=== PATIENT | female | born 1950 | race Caucasian/White ===

== ENCOUNTER 2020-03-07 09:56 | Emergency (ER) | payer MEDICARE, SELFPAY ==
--- NOTE | ~2020-03-07 | XR_ITS ---
EXAMINATION: XR chest 2V DATE: 03/07/2020 10:49 INDICATION: Right chest pain TECHNIQUE: PA and lateral views of the chest are obtained. COMPARISON: None available FINDINGS: The lungs are free of acute opacities. There is no pleural effusion or pneumothorax. The ca rdiomediastinal silhouette is normal. There is mild thoracic spondylosis. Changes of anterior interbo dy fusion are noted in the lower cervical spine. IMPRESSION: 1. No acute cardiopulmonary abnormality. Reviewed, dictated and finalized at location A.
[2020-03-07 10:01] VITALS: BP 134/77; PULSE 78; RESP 18; TEMP 36.6; O2SAT 100
--- NOTE | 2020-03-07 10:39 | ED.BACK ---
HPI - Back Pain/Injury General Chief Complaint: Back Pain/Injury <Moises Rodriguez PA-C - Last Filed: 03/07/20 12:32> Stated Complaint: Back Pain <Moises Rodriguez PA-C - Last Filed: 03/07/20 12:32> Source: patient and family <Moises Rodriguez PA-C - Last Filed: 03/07/20 12:32> Mode of arrival: ambulatory <Moises Rodriguez PA-C - Last Filed: 03/07/20 12:32> Limitations: no limitations <Moises Rodriguez PA-C - Last Filed: 03/07/20 12:32> History of Present Illness HPI Narrative: Patient is a 69-year-old female who presents with right upper thoracic paraspinal tenderness that began evening patient notes that she had been kayaking denied specific injury or trauma notes that the pain began in the evening is a moderate aching pain that intermittently shoots down the right upper extremity. Patient does have history of degenerative disc disease with a cervical spine fusion. Patient denies any neck pain. Patient denies similar occurrence in the past. Patient is attempted anti-inflammatories and pain medications that are [id number] with minimal improvement. On arrival to emergency department per private vehicle patient is resting comfortably in the room in no distress. Pain is reproducible with palpation and certain movements <Moises Rodriguez PA-C - Last Filed: 03/07/20 12:32> Related Data Home Medications: Home Medications Medication Instructions Recorded Confirmed hydroxychloroquine DAILY 03/07/20 pantoprazole 40 PO DAILY 03/07/20 <Moises Rodriguez PA-C - Last Filed: 03/07/20 12:32> Allergies/Adverse Reactions: Allergies Allergy/AdvReac Type Severity Reaction Status Date / Time morphine AdvReac Intermediate NAUSEA AND Verified 03/07/20 10:46 VOMITING <Moises Rodriguez PA-C - Last Filed: 03/07/20 12:32> Review of Systems Review of Systems: All systems reviewed & are unremarkable except as noted in HPI and below <Moises Rodriguez PA-C - Last Filed: 03/07/20 12:32> PMFSH Past Medical History Medical History: Medical History Lupus <Moises Rodriguez PA-C - Last Filed: 03/07/20 12:32> Surgical History Surgical History: Surgical History (Updated 03/07/20 @ 10:41 by Moises Rodriguez PA-C) S/P cervical spinal fusion <Moises Rodriguez PA-C - Last Filed: 03/07/20 12:32> Social History Social History: Social History (Updated 03/07/20 @ 10:41 by Moises Rodriguez PA-C) Smoking status: Never smoker Gender identity (if verbalized by the patient): Female <Moises Rodriguez PA-C - Last Filed: 03/07/20 12:32> Exam Narrative: Exam Narrative: GENERAL: Well-appearing, well-nourished, and in no acute distress. HEAD: Normocephalic, atraumatic. EYES: PERRLA and EOMI. ENT: Nares clear, no rhinorrhea or epistaxis. Mucous membranes moist. NECK: Supple. No adenopathy or masses. CHEST: Clear to auscultation. No respiratory distress. No wheezes rales or rhonchi HEART: Regular rate and rhythm. No murmur heard. Normal peripheral pulses. EXTREMITIES: Normal range of motion. No edema. Tenderness of the right paraspinal thoracic musculature with palpation of the muscles there are no rashes or other deformities noted no midline thoracic or cervical tenderness to palpation SKIN: Warm, dry, no rash. NEURO: No focal deficits. Alert and oriented x3. Neurovascularly intact. Capillary refill less than 2 seconds. Motor and sensory intact in the extremities PSYCH: Normal mood and affect. <Moises Rodriguez PA-C - Last Filed: 03/07/20 12:32> Course Vital Signs Vital signs: Vital Signs Temperature 36.6 C 03/07/20 10:01 Pulse Rate 78 03/07/20 10:01 Respiratory Rate 18 03/07/20 10:01 Blood Pressure 134/77 03/07/20 10:01 Pulse Oximetry 100 03/07/20 10:01 Temperature 36.6 C 03/07/20 10:01 Pulse Rate 78 03/07/20 10:01 Respiratory Rate 18
[2020-03-07] MEDS: diazePAM 5 MG TABLET PO (10:57)
[2020-03-07] MEDS: KETOROLAC 30 MG/ML VIAL (*BKC) IM (10:57)
--- NOTE | 2020-03-07 11:31 | ECG_ITS ---
Measurements Intervals Radcliffe Rate: 67 P: 59 DC: 170 QRS: 0 QRSD: 101 T: 29 QT: 382 QTc: 405 Interpretive Statements SINUS RHYTHM LOW QRS VOLTAGE IN PRECORDIAL LEADS INCOMPLETE RIGHT BUNDLE BRANCH BLOCK BORDERLINE R WAVE PROGRESSION, ANTERIOR LEADS BORDERLINE ST-T WAVE ABNORMALITY- INFERIOR LEADS BORDERLINE ECG Electronically Signed On 03-07-2020 15:15:43 CDT by Melvin Hernandez D.O.
[2020-03-07 12:40] VITALS: BP 128/74; PULSE 76; RESP 18; O2SAT 99
== END 2020-03-07 12:42 | disposition home or self-care (01) ==
PROVIDERS: Emergency Provider Emergency Medicine; PCP Family Medicine Adolescent Medicine
DX: M54.6 Pain in thoracic spine (principal); Z98.1 Arthrodesis status; I45.10 Unspecified right bundle-branch block; R94.31 Abnormal electrocardiogram [ECG] [EKG]
CPT/HCPCS: 71046; 93005; 96372; 99283; A9270; J1885

== ENCOUNTER → 2020-04-11 08:02 | Outpatient (CLI) | payer MEDICARE, SELFPAY ==
--- NOTE | ~2020-04-11 | MR_ITS ---
EXAMINATION: MR cervical spine wo con DATE: 04/11/2020 09:05 INDICATION: Cervical radiculopathy. Right arm weakness. TECHNIQUE: Magnetic resonance imaging (MRI) of the cervical spine was performed without intravenous c ontrast. Sequences included sagittal T2-weighted FSE, sagittal STIR FSE, sagittal T1-weighted FSE, ax ial MERGE, and axial T2-weighted FSE. COMPARISON: Cervical spine MRI 04/01/2014 FINDINGS: There is 2 mm retrolisthesis of C4 on C5. Vertebral body heights are normal. There are hicks ges of anterior fusion procedures at C5-C6 and C6-C7 with interbody devices. There is mildly decrease d disc height at C3-C4, severely decreased disc height at C4-C5, and mildly decreased disc height at C7-T1. The spinal cord signal intensity is normal. The following disc levels are specifically discuss ed: C2-C3: The disc does not extend beyond the endplate margin. There is no uncovertebral joint osteoarth ritis. There is mild bilateral facet joint osteoarthritis. There is no neural foraminal stenosis. The re is no central canal stenosis. C3-C4: The disc is bulging. There is severe bilateral uncovertebral joint osteoarthritis. There is mo derate right and severe left facet joint osteoarthritis. There is mild right and moderate left neural foraminal stenosis. There is mild central canal stenosis with ventral indentation of the spinal cord . C4-C5: The disc is bulging. There is severe bilateral uncovertebral joint osteoarthritis. There is mo derate bilateral facet joint osteoarthritis. There is moderate bilateral neural foraminal stenosis. T here is moderate central canal stenosis with ventral and dorsal indentation of the spinal cord. C5-C6: There is mild bilateral uncovertebral joint hypertrophy. There is no facet joint osteoarthriti s. There is mild left neural foraminal stenosis. There is no central canal stenosis. C6-C7: There is mild bilateral uncovertebral joint hypertrophy. There is no facet joint osteoarthriti s. There is no neural foraminal stenosis. There is no central canal stenosis. C7-T1: The disc does not extend beyond the endplate margin. There is mild left uncovertebral joint os teoarthritis. There is mild bilateral facet joint osteoarthritis. There is mild left neural foraminal stenosis. There is no central canal stenosis. IMPRESSION: 1. Severe cervical spondylosis, stable from 04/01/2014. 2. Anterior fusion procedures at C5-C6 and C6-C7. Reviewed, dictated and finalized at location A.
== END ==
PROVIDERS: Visit Provider Family Medicine Adolescent Medicine
DX: M47.22 Other spondylosis with radiculopathy, cervical region (principal)
CPT/HCPCS: 72141

== ENCOUNTER 2020-04-27 08:56 | Outpatient (CLI) | payer MEDICARE, SELFPAY | END 2020-04-27 08:57 | disposition home or self-care (01) | LOC: ANHAUDASC 08:57 | PROVIDERS: PCP Family Medicine Adolescent Medicine; Visit Provider Family Medicine Adolescent Medicine | DX: H90.3 Sensorineural hearing loss, bilateral (principal) | CPT/HCPCS: 92557; 92567 ==

== ENCOUNTER → 2020-06-22 11:00 | Outpatient (CLI) | payer MEDICARE, SELFPAY ==
--- NOTE | ~2020-06-22 | MM_ITS ---
EXAMINATION: MM screening [facility] BI w eyad HISTORY: Screening mammogram TECHNIQUE: Craniocaudal and mediolateral oblique 3-D tomosynthesis images were obtained and synthetic 2-D images were generated. CAD analysis was submitted and interpreted. COMPARISON: 03/01/2019, bilateral digital screening mammogram examinations BREAST PARENCHYMAL COMPOSITION: There are scattered areas of fibroglandular density. FINDINGS: Stable mild fibroglandular asymmetry. There is no evidence of suspicious mass, calcificatio n, or architectural distortion to suggest malignancy in either breast. There has been no suspicious i nterval change. IMPRESSION: 1. No mammographic evidence of malignancy. 2. Recommend routine screening mammography in one year. BI-RADS Category 2: Benign finding(s). Reviewed, dictated and finalized at location A. E LEADER
== END ==
PROVIDERS: PCP Family Medicine Adolescent Medicine; Visit Provider Family Medicine Adolescent Medicine
DX: Z12.31 Encounter for screening mammogram for malignant neoplasm of breast (principal)
CPT/HCPCS: 77063; 77067

== ENCOUNTER 2021-02-22 01:17 | Day surgery (SDC) | payer MEDICARE, SELFPAY ==
[2021-02-12 09:53] VITALS: BMI 27.6
[2021-02-22 10:35] VITALS: BP 117/56; PULSE 90; RESP 16; TEMP 36.9; O2SAT 100
[2021-02-22] MEDS: LACTATED RINGERS 1,000 ML 30 ML IV CONT (11:00)
--- NOTE | 2021-02-22 11:00 | WPDANESEPPF ---
Anes - Initial Pre Proc Eval Procedure: Operation Date: 02/22/21 12:00 Proposed Procedures p Excision Right Posterior Neck Mass - Axel Chicas MD Date/Time: 02/22/21 11:00 Surgeon: Axel Chicas MD Pre Op Diagnosis: right posterior neck mass Patient Data Age: 70 Gender: F Height: 1.57 m Weight: 68.5 kg Last Vital Signs Temp 36.9 C 02/22/21 10:35 Pulse 90 02/22/21 10:35 Resp 16 02/22/21 10:35 BP 117/56 L 02/22/21 10:35 Pulse Ox 100 02/22/21 10:35 Allergies Allergy/AdvReac Type Severity Reaction Status Date / Time morphine AdvReac Intermediate NAUSEA AND Verified 02/22/21 10:43 VOMITING Home Medications Medication Instructions Recorded Confirmed Type hydroxychloroquine 200 mg PO 3XW 03/07/20 02/22/21 History pantoprazole 20 mg PO DAILY 03/07/20 02/22/21 History cholecalciferol (vitamin D3) 125 mcg PO DAILY 02/12/21 02/22/21 History jqddxwdydbqc-tifl-weavb acid 1 tablet PO DAILY 02/12/21 02/22/21 History [[facility]] Patient hx anesthesia problems: none Family hx anesthesia problems: none PMFSH Past Medical History Medical History GERD (gastroesophageal reflux disease) High cholesterol Lupus Stomach ulcer Surgical History Surgical History S/P cervical spinal fusion S/P hysterectomy S/P tonsillectomy Family History Family History Father Dementia Mother Carcinoma of colon Social History Social History Smoking status: Never smoker Alcohol intake: current Living arrangements: with family Gender identity (if verbalized by the patient): Female Spiritual care concerns: No Anes - Eval Final PreProcedure Day of Procedure 02/22/21 11:00 Patient weight: overweight Heart: regular rate and rhythm Lungs: clear to auscultation and normal air movement Airway: Mallampati scale class II Neurological: alert and oriented Last oral intake: >/= 8 hours ASA classification: III Emergent: no Anesthetic plan: proceed Anesthesia type and monitoring: general GIVS and standard monitoring Informed Consent: The patient's anesthetic plan and its attendant risks and benefits were discussed with the patient/family/POA. Questions were solicited and answers provided to the satisfaction of the patient/family/POA.
--- NOTE | 2021-02-22 12:16 | WPDHPUPDATE1 ---
History and Physical Update Update Date/Time: 02/22/21 12:16 History and Physical has been reviewed, including an updated exam of the patient. There are NO changes in the patient's condition. Risks, benefits, and alternatives have been discussed and questions answered. Patient agrees to proceed with procedure.
--- NOTE | 2021-02-22 12:21 | SUR.PREOP ---
ancef 2gm sent to or ,verbal order from dr ivey.
[2021-02-22] MEDS: BUPIVACAINE/EPINEPHRINE 0.5% 30 ML VIAL 20 ML INFILTRATE (12:22)
[2021-02-22] MEDS: ceFAZolin 2 GM/D5W 50 ML 2 GM/50 ML BAG IVPB (12:22)
[2021-02-22 13:20] VITALS: BP 98/51; PULSE 85; RESP 20; O2SAT 100
--- NOTE | 2021-02-22 13:37 | W.PM.PROC2 ---
Procedure Note - Detailed Date of Procedure 02/22/21 Pre-op Diagnosis right posterior neck subcutaneous mass Post-op Diagnosis same (Suspected lipoma (3.3 x 3.0 x 1.8 cm after excision)) Procedure Performed Excision of subcutaneous mass right posterior neck 4 x 3 by 1.87 cm Surgeon Axel Chicas MD Employee Adviser LASHONDA Mays, OR 1st assist Anesthesia general (GIVS plus local anesthetic) Indications See H&P Patient has a movable subcutaneous mass is oriented vertically approximately 2-3 cm off the midline posterior neck overlying the muscles. This been gradually getting larger causing discomfort. , Therefore, I discussed the risks, benefits, and possible complications of an excision with IV sedation local anesthetic. Findings An adherent suspected lipoma within the subcutaneous tissues densely adhered to the underlying muscle fascia. Description of Procedure The patient was placed in the left lateral decubitus position. General IV sedation was provided Dave anesthesia. After a surgical time out confirming patient and procedure the patient was prepped and draped in the usual sterile fashion. Local anesthetic was administered subcutaneously and in the skin along the line of proposed incision which was vertical approximately 2-3 cm off the midline posteriorly on the right posterior neck. The lesion measured 4 x 3 cm prior to excision and the incision over the lesion was approximately 4.5 cm long. A direct incision was made over the the palpable subcutaneous mass. I dissected down to the deep subcutaneous tissues and then apply pressure to the medial and lateral sides of it to see if this would push the lipoma right up and out of the subcutaneous tissues. It did not. Therefore, we went ahead with further dissection elevating the ends of the incisions on both ends with retractors and carefully dissecting with a 15 blade knife and then with Bovie cautery to free the adherent lipoma from the underlying musculature of the neck probably excising a little bit of the underlying fascia and excising it from the surrounding subcutaneous tissues. This completely excised the lesion. There was a very thin capsule. On the lateral upper aspect there was a small amount of fatty tissue suspicious for a tongue of the lipoma that was also excised after we carefully inspected the bed where the main body of the lipoma, which measured a vertically 3.8 cm, horizontally 3.0 cm, and with a depth of 1.8 cm after excision. Bleeding was controlled with electrocautery. The wound was closed in two layers. An un-dyed 2-0 vicryl deep dermal and then a 4-0 undyed Monocryl running subcuticular closure was completed. Surgical glue applied as dressing. Patient tolerated this well. Implants None Estimated Blood Loss 5 Drains No Packing No Pathology yes (subcutaneous mass with one large mass and several separate small pieces) Complications No immediate complications Condition stable Disposition same day
[2021-02-22 13:50] VITALS: BP 98/49; PULSE 68; RESP 16; O2SAT 100
[2021-02-22 14:16] VITALS: BP 113/85; PULSE 76; RESP 16
== END 2021-02-22 14:25 | disposition home or self-care (01) ==
PROVIDERS: PCP Family Medicine Adolescent Medicine; Visit Provider Surgery
PROC: (CPT 21552; principal; 2021-02-22 12:00)
DX: D17.0 Benign lipomatous neoplasm of skin and subcutaneous tissue of head, face and neck (principal); K21.9 Gastro-esophageal reflux disease without esophagitis; E78.00 Pure hypercholesterolemia, unspecified; M32.9 Systemic lupus erythematosus, unspecified; Z98.1 Arthrodesis status
CPT/HCPCS: 21552; 88304; J0690; J1100; J2250; J2405; J2704; J3010; J7120

== ENCOUNTER → 2021-03-12 12:11 | Outpatient (CLI) | payer MEDICARE, SELFPAY ==
--- NOTE | ~2021-03-12 | DEXA_ITS ---
Bone Density Report Name: Keren Chung Age: 70 Sex: Female Ethnicity: White Date of : 1950 Indication: postmenopausal; screening for osteoporosis; hysterectomy; Referring Provider: BOB SUAZO Study: Bone densitometry was performed. Exam Date: March 12, 2021 Accession number: [id number] Bone Density: Region BMD T-score Z-score Classification AP Spine (L1-L4) 1.110 0.6 2.6 Normal Femoral Neck (Left) 0.764 -0.8 0.9 Normal Total Hip (Left) 0.925 -0.1 1.3 Normal Femoral Neck (Right) 0.817 -0.3 1.4 Normal Total Hip (Right) 1.032 0.7 2.2 Normal Total Hip Mean 0.979 0.3 1.8 Normal World Health Organization criteria for BMD impression classify patients as: Normal (T-score at or above -1.0), Osteopenia (T-score between -1.0 and -2.5), or Osteoporosis (T-score at or below -2.5). 10-year Fracture Risk: FRAX not reported because: All T-scores for Spine Total, Hip Total, Femoral Neck at or above -1.0 Previous Exams: Region Exam Age BMD T-score BMD Change BMD Change Date g/cm2 vs Baseline vs Previous AP Spine(L1-L4) 03/12/2021 70 1.110 0.6 -0.005 -0.030* 02/06/2018 67 1.141 0.9 0.026* 0.033* 01/05/2011 60 1.108 0.6 -0.007 -0.007 12/22/2008 58 1.115 0.6 Total Hip(Left) 03/12/2021 70 0.925 -0.1 -0.079* -0.032* 02/06/2018 67 0.957 0.1 -0.047* -0.053* 01/05/2011 60 1.010 0.6 0.006 0.006 12/22/2008 58 1.004 0.5 Total Hip(Right) 03/12/2021 70 1.032 0.7 -0.048* -0.006 02/06/2018 67 1.038 0.8 -0.042* -0.028* 01/05/2011 60 1.066 1.0 -0.014 -0.014 12/22/2008 58 1.080 1.1 *Denotes significance at 95% confidence level, LSC for AP Spine = 0.022 g/cm2, LSC for Total Hip = 0.027 g/cm2 Clinical Information Provided by Patient: Has used the following medications: Calcium Has the following medical conditions: Hysterectomy Patient maximum height was 62 Menopause Age: 46 No regular weight bearing exercise Drinks caffeinated beverages Onset of menses at age 17 Number of children 2 Impression: The patient has normal bone mass. The BMD for the AP Spine(L1-L4) decreased, changing by -0.030 since the last DXA exam. The BMD for the Total Hip(Left) decreased, changing by -0.032 since the last DXA exam. Discussion: BONE DENSITY
== END ==
PROVIDERS: PCP Family Medicine Adolescent Medicine; Visit Provider Family Medicine Adolescent Medicine
DX: M81.0 Age-related osteoporosis without current pathological fracture (principal)
CPT/HCPCS: 77080

== ENCOUNTER → 2021-05-04 10:27 | Outpatient (CLI) | payer MEDICARE, SELFPAY ==
--- NOTE | ~2021-05-04 | MR_ITS ---
EXAMINATION: MR cervical spine wo con EXAM DATE: 05/04/2021 11:23 INDICATION: Cervical spinal stenosis with right hand weakness and numbness. TECHNIQUE: Multi-sequential, multiplanar MR images of the cervical spine were obtained without contra st. Axial T2, axial T2 MERGE sequence. Sagittal T1, T2, T2 fat saturation images also obtained. Th ere is no prior study for comparison. FINDINGS: Interbody fusion at C5-6. There is moderate to severe disc disease C4-5, moderate at C3-4 a nd C6-7. The spinal cord signal intensity and intrinsic morphology is normal. Cervicomedullary juncti on is normal in appearance. The vertebral bodies are aligned in the AP dimension. There are no susp icious marrow signal abnormalities. Paraspinal soft tissue is unremarkable. Level by level evaluation: C2-C3: Disc does not extend beyond the endplate margin. Uncovertebral joint arthropathy: Mild bilateral. Facet joint arthropathy: Mild bilateral. Neural foraminal stenosis: No stenosis. Central canal stenosis: No stenosis. C3-C4: There is a mild diffuse disc bulge. Uncovertebral joint arthropathy: Moderate left, mild to moderate right. Facet joint arthropathy: Mild to moderate bilateral. Neural foraminal stenosis: Moderate to severe left, mild to moderate right. Central canal stenosis: Mild. C4-C5: There is a mild diffuse disc bulge. Uncovertebral joint arthropathy: Severe right, moderate to severe left. Facet joint arthropathy: Moderate bilateral. Neural foraminal stenosis: Severe right, moderate to severe left. Central canal stenosis: Mild. C5-C6: Interbody fusion. Uncovertebral joint arthropathy: Fused. Facet joint arthropathy: Mild. Neural foraminal stenosis: Mild left. Central canal stenosis: No stenosis. C6-C7: Mild to moderate bilateral Uncovertebral joint arthropathy: None. Facet joint arthropathy: None. Neural foraminal stenosis: No stenosis. Central canal stenosis: No stenosis. C7-T1: There is a minimal diffuse disc bulge. Uncovertebral joint arthropathy: Mild to moderate left, mild right. Facet joint arthropathy: Mild bilateral. Neural foraminal stenosis: Mild bilateral. Central canal stenosis: No stenosis. IMPRESSION: 1. 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 2. Interbody fusion C5-6. Reviewed, dictated and finalized at location A. IMPRESSION: 1. Advanced C3-4 and 4-5 arthropathy causing significant neural foraminal sten osis. 2. Interbody fusion C5-6.
== END ==
PROVIDERS: PCP Family Medicine Adolescent Medicine; Visit Provider Family Medicine Adolescent Medicine
DX: M48.02 Spinal stenosis, cervical region (principal); R20.2 Paresthesia of skin; Z98.1 Arthrodesis status
CPT/HCPCS: 72141

== ENCOUNTER 2021-05-10 08:56 | Outpatient (CLI) | payer MEDICARE, SELFPAY | END 2021-05-10 08:57 | disposition home or self-care (01) | LOC: ANHAUDASC 08:58 | PROVIDERS: PCP Family Medicine Adolescent Medicine; Visit Provider Family Medicine Adolescent Medicine | DX: H90.3 Sensorineural hearing loss, bilateral (principal) | CPT/HCPCS: 92557; 92567 ==

== ENCOUNTER → 2021-10-05 13:18 | Outpatient (CLI) | payer MEDICARE, SELFPAY ==
--- NOTE | ~2021-10-05 | MM_ITS ---
EXAMINATION: MM screening [facility] BI w eyad HISTORY: Screening TECHNIQUE: Craniocaudal and mediolateral oblique 3-D tomosynthesis images were obtained and synthetic 2-D images were generated. CAD analysis was submitted and interpreted. COMPARISON: Comparison to multiple prior studies sequentially, with oldest reviewed study dated 12/2017. BREAST PARENCHYMAL COMPOSITION: There are scattered areas of fibroglandular density. FINDINGS: There is no evidence of suspicious mass, calcification, or architectural distortion to sugg est malignancy in either breast. There has been no suspicious interval change. IMPRESSION: 1. No mammographic evidence of malignancy. 2. Recommend routine screening mammography in one year. BI-RADS Category 1: Negative Reviewed, dictated and finalized at location A.
== END ==
PROVIDERS: PCP Family Medicine Adolescent Medicine; Visit Provider Obstetrics & Gynecology
DX: Z12.31 Encounter for screening mammogram for malignant neoplasm of breast (principal)
CPT/HCPCS: 77063; 77067

== ENCOUNTER 2023-02-13 10:40 | Outpatient (CLI) | payer MEDICARE, SELFPAY ==
--- NOTE | ~2023-02-13 | MM_ITS ---
EXAMINATION: MM screening [facility] BI w eyad HISTORY: Screening TECHNIQUE: Craniocaudal and mediolateral oblique 3-D tomosynthesis images were obtained and synthetic 2-D images were generated. CAD analysis was submitted and interpreted. COMPARISON: No prior mammogram is available for comparison at this institution. BREAST PARENCHYMAL COMPOSITION: There are scattered areas of fibroglandular density. FINDINGS: There is no evidence of suspicious mass, calcification, or architectural distortion to sugg est malignancy in either breast. There has been no suspicious interval change. IMPRESSION: 1. No mammographic evidence of malignancy. 2. Recommend routine screening mammography in one year. BI-RADS Category 1: Negative Reviewed, dictated and finalized at location A.
== END 2023-02-13 10:41 ==
PROVIDERS: PCP Obstetrics & Gynecology; Visit Provider Family Medicine Adolescent Medicine
DX: Z12.31 Encounter for screening mammogram for malignant neoplasm of breast (principal)
CPT/HCPCS: 77063; 77067

== ENCOUNTER 2023-10-12 10:57 | Outpatient (CLI) | payer MEDICARE, SELFPAY ==
--- NOTE | ~2023-10-12 | DEXA_ITS ---
Bone Density Report Name: WILLIAM TRIPLETT Age: 73 Sex: Female Ethnicity: White Date of : 1950 Indication: postmenopausal; screening for osteoporosis; hysterectomy; rheumatoid arthritis; Referring Provider: JAN SMITH Study: Bone densitometry was performed. Exam Date: October 12, 2023 Accession number: [id number] Bone Density: Region BMD T-score Z-score Classification AP Spine (L1, L2) 0.958 -0.2 1.8 Normal Femoral Neck (Left) 0.733 -1.0 0.8 Normal Total Hip (Left) 0.907 -0.3 1.3 Normal Femoral Neck (Right) 0.799 -0.4 1.4 Normal Total Hip (Right) 0.994 0.4 2.0 Normal Total Hip Mean 0.951 0.1 1.7 Normal World Health Organization criteria for BMD impression classify patients as: Normal (T-score at or above -1.0), Osteopenia (T-score between -1.0 and -2.5), or Osteoporosis (T-score at or below -2.5). 10-year Fracture Risk: FRAX not reported because: All T-scores for Spine Total, Hip Total, Femoral Neck at or above -1.0 Previous Exams: Region Exam Age BMD T-score BMD Change BMD Change Date g/cm2 vs Baseline vs Previous AP Spine(L1, L2) 10/12/2023 73 0.958 -0.2 -0.085* -0.014 03/12/2021 70 0.972 -0.1 -0.071* -0.020 02/06/2018 67 0.992 0.1 -0.050* -0.057* 01/05/2011 60 1.049 0.6 0.007 0.007 12/22/2008 58 1.043 0.6 Total Hip(Left) 10/12/2023 73 0.907 -0.3 -0.097* -0.018 03/12/2021 70 0.925 -0.1 -0.079* -0.032* 02/06/2018 67 0.957 0.1 -0.047* -0.053* 01/05/2011 60 1.010 0.6 0.006 0.006 12/22/2008 58 1.004 0.5 Total Hip(Right) 10/12/2023 73 0.994 0.4 -0.086* -0.038* 03/12/2021 70 1.032 0.7 -0.048* -0.006 02/06/2018 67 1.038 0.8 -0.042* -0.028* 01/05/2011 60 1.066 1.0 -0.014 -0.014 12/22/2008 58 1.080 1.1 *Denotes significance at 95% confidence level, LSC for AP Spine = 0.022 g/cm2, LSC for Total Hip = 0.027 g/cm2 Clinical Information Provided by Patient: Has rheumatoid arthritis Has used the following medications: Vitamin D, MTV Has the following medical conditions: Hysterectomy Patient maximum height was 62 Menopause Age: 46 No regular weight bearing exercise Drinks caffeinated beverages Onset of menses at age 17 Number of children 2 Impres
== END 2023-10-12 10:58 ==
PROVIDERS: PCP Obstetrics & Gynecology; Visit Provider Nurse Practitioner Family
DX: M81.0 Age-related osteoporosis without current pathological fracture (principal); Z13.820 Encounter for screening for osteoporosis
CPT/HCPCS: 77080

== ENCOUNTER 2024-01-05 09:58 | Outpatient (CLI) | payer MEDICARE, SELFPAY ==
--- NOTE | ~2024-01-05 | XR_ITS ---
3 VIEWS LUMBAR SPINE Ordering provider: New Murrell MD History: . low back pain . Comparison: None. FINDINGS: VERTEBRAL BODIES:Minimal anterolisthesis at the level of L5-S1. No visible fracture or subluxation. Degenerative changes of the spine. DISK SPACES: Narrowing of all the disc spaces at all the lumbar area. Multilevel facet joint disease. SOFT TISSUES: Normal. IMPRESSION: No acute osseous abnormality lumbar spine. Multilevel degenerative disc disease. Reviewed, dictated and finalized at location A.
--- NOTE | ~2024-01-05 | XR_ITS ---
EXAMINATION: XR cervical spine min 6V DATE: 01/05/2024 10:33 INDICATION: Neck pain. TECHNIQUE: 7 views of cervical spine including flexion and extension views were obtained. COMPARISON: Cervical spine MRI 04/11/2020 FINDINGS: Bone alignment is normal. There are changes of anterior fusion procedure from C4 to C7 with interbody devices. There is an anterior plate with screws at C4-C5. Vertebral body heights are osvaldo l. There is moderately decreased disc height at C3-C4 and mildly decreased disc height at C7-T1. Ther e is no abnormal motion on flexion or extension. There is multilevel uncovertebral joint hypertrophy, severe on the left at C3-C4 and on the right at C4-C5. There is multilevel mild facet joint osteoart hritis. There is mild right neural foraminal stenosis at C4-C5. There is moderate left neural foramin al stenosis at C3-C4. There is mild central canal stenosis at C3-C4. No prevertebral soft tissue swel ling. IMPRESSION: 1. Moderate cervical spondylosis. 2. Anterior fusion procedure from C4 to C7. Reviewed, dictated and finalized at location A.
== END 2024-01-05 09:59 ==
PROVIDERS: Visit Provider Family Medicine Adolescent Medicine
DX: M47.892 Other spondylosis, cervical region (principal); Z98.1 Arthrodesis status; M51.36 Other intervertebral disc degeneration, lumbar region
CPT/HCPCS: 72052; 72114

== ENCOUNTER 2025-01-21 00:57 | Day surgery (SDC) | payer MEDICARE, SELFPAY ==
[2025-01-15 16:00] VITALS: BMI 29.0
--- OUTSIDE RECORDS SUMMARY | 2025-01-21 00:59 | XMS_ITS | Clinical Summary ---
Author Organization [facility] Address [address] [place] [address] Care Team Providers Care Revenue Research Analyst Name Role Phone New Murrell MD Primary Care Prov ider Allergies Active Allergy Reactions Criticality Noted Date Comments Codeine Nausea & Vomiting Low 06/16/2020 Morphine Nausea & Vomiting Medium 05/20/2014 Medications multivitamin capsuleIndicat ions:Vitamin Deficiency Take 2 capsules by mouth every morning Gummies Active pantoprazole DR (PROTONIX) 40 mg EC tablet Take 1 tablet (40 mg total) by mouth daily Active diclofenac DR (VOLTAREN) 50 mg EC tablet TAKE 1 TABLET BY MOUTH EVERY DAY 30 tablet [address] (VOLTAREN) 50 mg EC tablet TAKE 1 TABLET BY MOUTH EVERY DAY 30 tablet 5 025 Discontinued Active Problems Problem Noted Date Diagnosed Date Cervical disc disorder with myelopathy of mid-cervical region 07/12/2021 Overview (07/12/2021): Added automatically from request for surgery [id number] Pain in joint involving ankle and foot 9 Chronic GERD 06/08/2018 Pill dysphagia 06/08/2018 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 I recommend that she decrease her hydroxychloroquine to 3 x weekly and if no interval symptomatology, I will discontinue it in 6 months. I am going to order repeat liver function tests for 1 month from now. She will follow up with me in 6 months. Assessment & Plan (05/17/2019 4:50 PM RAMP FLIGHT ATTENDANT): 68-year-old white female with longstanding positive AMADOU, intermittently positive SSB with symptoms of sicca symptoms, mild oral and nasal ulcerations, and arthralgias with exam predominantly consistent with osteoarthritis at this time. She has been on hydroxychloroquine for over 10 years and has not noted any significant escalation of symptoms on a reduced dose. I would like to reassess for the presence of erosive or inflammatory arthritis with hand radiographs. I would like to assess additional serology is a complements, lupus anticoagulant, bwam-ghswov-tbmxkqtu DNA antibodies in urinalysis today. If all is stable I would consider decreasing her to a maintenance dose of 200 mg 3 x weekly given her age and absence of progression. She has significant positive anti mitochondrial antibody but minimal transaminitis so will continue to monitor this at this time but I reassured the patient that the hydroxychloroquine is not the cause of her mild transaminitis. Immunizations Immunization Administration Dates Next Due Influenza, Quadrivalent, Hig h Dose, Preservative Free, Intrr 04/10/2020 Influenza, Trivalent, High D ose, Split, Preservative Free, Intramuscular 05/04/2018 Influenza, Trivalent, Split, Preservative Free, Intradermal 05/05/2017,04/07/2015 Influenza, Unspecified 04/10/2020,05/04/2018 Surgical History Surgery Date Site/Laterality Comments TONSILLECTOMY SPINAL FUSION HYSTERECTOMY 07/03/1997 - 07/02/1998 COLONOSCOPY 2014 Medical History Medical History Date Comments High cholesterol Stomach ulcer Chest pain Gastric reflux Disc disorder of lumbar region Lumbar stenosis Osteoarthritis Lupus PONV (postoperative nausea and vomiting) nausea and vomitting after spinal surgery in 2007, stayed overnight for PONV, unsure if related to anesthesia or pain meds, no problems since Lyme disease 10/2022 HL (hearing loss) 2021 GERD (gastroesophageal reflux disease) 2016 Tinnitus 2020 Connective tissue disease, undifferentiated 05/17/2019 Family History Medical History Relation Name Comments Asthma Brother Everardo Sheridan Jr. Arthritis Father Everardo Sheridan Hearing loss Father Everardo Sheridan Early Maternal Grandfather Cancer Maternal Grandmother Abigail Hilliard Cancer Mother Amanda Sheridan Hearing loss Mother Amanda Sheridan Osteoporosis Mother Amanda Sheridan Early Paternal Grandfather Early Paternal Grandmother Anesthesia problems Neg Hx Relation Name Status Comments Brother Everardo Sheridan Jr. Father Everardo Sheridan Maternal Grandfather Maternal Grandmother Abigail Hilliard Mother Amanda Sheridan Paternal Grandfather Paternal Grandmother Social History Tobacco Use Types Packs/Day Years Used Date Smoking Tobacco: Former Cigarettes 0.2 6 1 1977 Smokeless Tobacco: Never Tobacco Cessation:Counseling Given: Not Answered Alcohol Use Standard Drinks/Week Comments Not Currently 0 (1 standard drink = 0.6 oz pur e alcohol) AUDIT-C Answer Date Recorded Q1: How often do you have a drink containing alcohol? Never 06/13/2024 Q2: How many drinks containi ng alcohol do you have on a typical day when you are drinking? Patient does not drink Q3: How often do you have si x or more drinks on one occasion? Never 06/13/2024 Comments No Sex and Gender Information Value Date Recorded Sex Assigned at Not on file Legal Sex Female 2:04 PM RAMP FLIGHT ATTENDANT Gender Identity Female 10/28/2019 3:27 PM CDT Sexual Orientation Straight 10/28/2019 3: 27 PM CDT Obstetrics History Last Filed Vital Signs Vital Sign Reading Time Taken Comments Blood Pressure 119/70 06/13/2024 1:10 PM RAMP FLIGHT ATTENDANT Pulse 79 06/13/2024 1:10 PM RAMP FLIGHT ATTENDANT Temperature 36.6 C (97.9 F) 06/13/2024 1:10 PM RAMP FLIGHT ATTENDANT Respiratory Rate 18 06/13/2024 1:10 PM RAMP FLIGHT ATTENDANT Oxygen Saturation 100% 06/13/2024 1:10 PM RAMP FLIGHT ATTENDANT Inhaled Oxygen Concentration - - Weight 71.6 kg (157 lb 12.8 oz) 06/13/2024 1:10 PM RAMP FLIGHT ATTENDANT Height 157.5 cm (5' 2) 12/20/2023 8:54 AM CDT Body Mass Index 28.86 12/20/2023 8:54 AM CDT Plan of Treatment Health Maintenance Due Date Last Done Comments Breast Cancer Screening-Mammogram 1950 Colon Cancer Screening-Colonoscopy 1950 Depression Screening 1950 Hepatitis C Screening 1950 Osteoporosis Screening-Bone Density Scan 1950 DTaP/Tdap/Td Vaccine (1 - Tdap) 10/02/1963 Hepatitis B Screening 1970 Pneumococcal vaccine 65+ (1 of 1 - PCV) 2002 Zoster Vaccine (1 of 2) 2002 Well Visit 65+ 2017 Fall Risk Assessment 08/13/2022 08/13/2021 Covid-19 Vaccine (4 - 2023-2 5 season) 2024 06/16/2021, 09/04/2020, 08/07/2020 Influenza Vaccine (Season Ended) 2025 04/10/2020, 04/10/2020, 05/04/2018, Additional history exists Medical Devices Implanted Type Area Lapidarist Device Identifier Shelf Expiration Date Model / Serial / Lot [place] Spine [id number] Mm X W17 Mm X H6 Mm Cervical Anterior 10 D Cage Spinal Tritanium Sterile Latex Free - [id number] Implanted:Qty : 1 on 08/13/2021 by Kelvin Gant MD at [facility] N/A: Spine Cervical [employer] Spine [id number] 10/08/2022 [id number] / / [id number] Clarkston Spine [id number] Plate 20mm Bone Coffee Spine Cervical 1 Level Nonsterile Latex Free - [id number] Implanted:Qty : 1 on 08/13/2021 by Kelvin Gant MD at [facility] N/A: Spine Cervical Clark[employer] Spine [id number] / / [id number] Spine [id number] Screw 16mm 4mm Bone Coffee Spine Cervical Self Start Variable Angle Nonsterile - [id number] Implanted:Qty : 4 on 08/13/2021 by Kelvin Gant MD at [facility] N/A: Spine Cervical Clark[employer] Spine [id number] / / [id number] 700-010 Putty 1cc I-Factor Bone - [id number] Implanted:Qty : 1 on 08/13/2021 by Kelvin Gant MD at [facility] N/A: Spine Cervical [employer] [id number] 03/02/2024 700-010 / / [id number] Insurance UHC MEDICARE ADVANTAGE [facility] Address: [address] [address] [place] [id number] [place]CR HMO REF [facility]IC[facility] Address: [address] [address] [place] [address] UHC MEDICARE ADVANTAGE Advance Directives For more information, please contact: [phone] * Full Code (Latest Code Status on File) Date Activated Date Inactivated Comments 08/13/2021 4:22 PM 08/14/2021 6:55 PM Care Teams Revenue Research Analyst Relationship Specialty Start Date End Date New Murrell MD PCP - General Family Medicine 02/08/19
--- OUTSIDE RECORDS SUMMARY | 2025-01-21 00:59 | XMS_ITS | Clinical Summary ---
Author Organization [facility] Address [address] [place] [address] Care Team Providers Care Mission Systems Engineer Name Role Phone New Murrell MD Primary Care Provider + Source Comments [facility],non-owned Affiliates and Associated Physician Practices is amultiple site organization consisting of ambulatory clinics and hospital sitesin [place], [place], [place] and [place]. This disclosure is being madepursuant to the Care Everywhere program and may not contain all information available regarding this patient. Last updated 18.[facility] [employer] Allergies Active Allergy Reactions Criticality Noted Date Comments Morphine Nausea and/or Vomiting Medium 05/20/2014 Medications * Be aware that medications may not be up to date on this document. Alwaysverify current medications with the patient. multivitamin daily (THERAGRAN) tablet Take 1 Tab by mouth daily with food. Active acetaminophen (TYLENOL) 500 MG tablet Take 500 mg by mouth every 4 hours as needed for Fever or Pain Maximum allowable Acetaminophen amount = 4 Grams (4000 mg) / 24 hours. Active hydroxychloroqu ine (PLAQUENIL) 200 MG tabletIndicatio ns:Connective tissue disease (HCC),Antimitoc hondrial antibody positive Take 1 tablet by mouth 2 times daily 180 tablet 3 9 Active Additional Information Patient taking differently:200 mg Oral,(No frequency reported), Takes 200mg M,W,F, Reported on 03/02/2020 ibuprofen (MOTRIN) 800 MG tablet TAKE 1 TAB BY MOUTH EVERY 8 HOURS NEEDED 0 Active pantoprazole EC (PROTONIX) 20 MG tabletIndicatio ns:Gastroesopha geal reflux disease, unspecified whether esophagitis present Take 1 (one) tablet by mouth once daily 180 tablet 1 2 Active Active Problems Problem Noted Date Diagnosed Date Pill dysphagia 06/08/2018 Chronic GERD 06/08/2018 Connective tissue disease 11/05/2017 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 (FLUZONE HIGH-DOSE QUADRIVALENT; 65Y+), 0.7 ML (HD-IIV4) 05/04/2018 Influenza Intradermal 05/05/2017,04/07/2015 Family History Medical History Relation Name Comments Arthritis - Rheumatoid Father Thyroid Disease Mother Relation Name Status Comments Father Mother Social History Tobacco Use Types Packs/Day Years Used Date Smoking Tobacco: Never Smokeless Tobacco: Never Alcohol Use Standard Drinks/Week Comments No 0 (1 standard drink = 0.6 oz pur e alcohol) rare Comments No Sex and Gender Information Value Date Recorded Sex Assigned at Not on file Legal Sex Female 6:37 AM MANAGEMENT CONSULTING Gender Identity Not on file Sexual Orientation Not on file Occupation Industry Job Start Date Job End Date RETIRED Not on file Not on file Not on file Last Filed Vital Signs Vital Sign Reading Time Taken Comments Blood Pressure 118/72 03/15/2021 9:51 AM CDT Pulse 67 03/15/2021 9:51 AM CDT Temperature 36.7 C (98 F) 03/02/2020 10:35 AM CDT Respiratory Rate 18 09/02/2019 10:35 AM MANAGEMENT CONSULTING Oxygen Saturation 100% 03/15/2021 9:51 AM CDT Inhaled Oxygen Concentration - - Weight 70.4 kg (155 lb 3.2 oz) 03/15/2021 9:51 A M CDT Height 157.5 cm (5' 2) 03/15/2021 9:51 AM CDT Body Mass Index 28.39 03/15/2021 9:51 AM CDT Plan of Treatment Health Maintenance Due Date Last Done Comments BONE DENSITY TESTING 1950 COLOGUARD (AGES 45-75) - COLON CA SCREENING 1950 COLON MONITORING 1950 COLONOSCOPY - COLON CA SCREENING 1952 CT COLONOGRAPHY - COLON CA SCREENING 1950 Colorectal Cancer Screening 1950 FIT - COLON CA SCREENING 1952 FLEX SIG - COLON CA SCREENING 1950 LIPID TESTING 1950 MAMMOGRAM 1950 DTAP/TDAP/TD VACCINES (1 - Tdap) 10/02/1971 PNEUMOCOCCAL VACCINE 50+ (1 of 1 - PCV) 2002 ZOSTER VACCINE (1 of 2) 2002 SCREENING FOR DIABETES 03/06/2022 9, 11/01/2017, 04/20/2017, Additional history exists COVID-19 VACCINE ( - season) 2024 DEPRESSION SCREENING 07/03/2024 MEDICARE AWV CALENDAR YEAR 2024 INFLUENZA VACCINE (#1) 2025 , 04/10/2020, 05/04/2018, Additional history exists Respiratory Syncytial Virus (RSV) Vaccine Pt: or over 60 yrs (1 - 1-dose 75+ series) 10/02/2027 HEPATITIS C SCREENING Completed 08/23/2011 HEPATITIS B VACCINE Aged Out No longe r eligible based on patient's age to complete this topic HIB VACCINE Aged Out No longer eligi ble based on patient's age to complete this topic HPV VACCINE Aged Out No longer eligi ble based on patient's age to complete this topic MENINGOCOCCAL (Group B) VACCINE SHARED DECISION-MAKING Aged Out No longer eligible based on patient's age to complete this topic MENINGOCOCCAL GROUPS A/C/Y/W VACCINE Aged Out No longer eligible based on patient's age to complete this topic Goals Goal Patient Goal Type Associated Problems Recent Progress Patient-Stated? Author Medication Management General On track( 021 9:53 AM CDT) Linette Mann, RN Note: Expected end date: ongoing Interventions: Take all medications as prescribed Let your doctor know right away about any changes in your medications Make sure to request a refill of your medication at least one week prior to your last dose Procedures Procedure Name Priority Date/Time Associated Diagnosis Comments COMPREHENSIVE METABOLIC PANEL Routine 03/06/2019 9:12 AM CDT Connective tissue disease Elevated LFTs Other specified abnormal findings of blood chemistry Connective tissue disease, undifferentiated Encounter for long-term (current) use of high-risk medication Encounter for therapeutic drug monitoring HEPATITIS C ANTIBODY Routine 08/23/2011 3:40 PM MANAGEMENT CONSULTING from Last 3 Months or Most Recently Relevant to Health Maintenance Results * COMPREHENSIVE METABOLIC PANEL (03/06/2019 9:12 AM CDT) Glucose 89 65 - 99 mg/dL [facility] INSURANCE BILL BUN 11 8 - 27 mg/dL [facility] BILL Creatinine 0.87 0.57 - 1.00 mg/dL [facility] INSURANCE BILL eGFR by MDRD 70 >59 mL/min/1.7 3 [facility] INSURANCE BILL eGFR by MDRD 80 >59 mL/min/1.7 3 [facility] INSURANCE BILL BUN/Creatinine Ratio 13 12 - 28 [facility] INSURANCE BILL Sodium 139 134 - 144 mmol/L [facility] INSUR[facility] BILL Potassium 4.5 3.5 - 5.2 mmol/L [facility] INSURANCE BILL Chloride 102 96 - 106 mmol/L [facility] INSURANCE BILL CO2 25 20 - 29 mmol/L [facility] INSURANCE BILL Calcium 9.9 8.7 - 10.3 mg/dL [facility] INSURANCE BILL Protein Total 6.6 6.0 - 8.5 g/dL [facility] INSURANCE BILL Albumin 4.4 3.6 - 4.8 g/dL [facility] INSURANCE BILL Globulin Total 2.2 1.5 - 4.5 g/dL [facility] INSURANCE BILL Albumin/Globulin Ratio 2.0 1.2 - 2.2 [facility] INSURANCE BILL Bilirubin Total 0.6 0.0 - 1.2 mg/dL [facility] INSURANCE BILL Alkaline Phosphatase 65 39 - 117 IU/L [facility] INSURANCE BILL AST 21 0 - 40 IU/L [facility] INSURANCE BILL ALT 19 0 - 32 IU/L [facility] INSURANCE BILL Comment:FASTING Blood BLOOD SPECIMEN / Unknown 03/06/2019 9:12 AM CDT 03/06/2019 Narrative Resulting Agency Comment Lab Testing performed at: [facility] [id number] Jackie Quiroz MD LAB - CHEMISTRY ORDERA BLES Final Result [facility] INSURANCE BILL [address] [place] [address] * HEPATITIS C ANTIBODY (08/23/2011 3:40 PM MANAGEMENT CONSULTING) Hepatitis C Antibody NEGATIVE NEGATIVE [facility] Comment: Anti-HCV screen indicates no serologic evidence of past or current infection with Hepatitis C Virus. 08/23/2011 3:40 PM MANAGEMENT CONSULTING 08/23/2011 4:13 PM MANAGEMENT CONSULTING us Han Forrest MD LAB - CHEMISTRY ORDERABLES Final Result [address] [phone] from Last 3 Months or Most Recently Relevant to Health Maintenance Insurance [facility] MANAGED MEDICARE ADV [facility] MANAGED MEDICARE ADV Care Teams Mission Systems Engineer Relationship Specialty Start Date End Date New Murrell MD [address] [address] PCP - General 11/01/17
--- OUTSIDE RECORDS SUMMARY | 2025-01-21 00:59 | XMS_ITS | Continuity of Care Document ---
Author Organization [facility] Address [address] [place] [address] Phone Care Team Providers Care Labor Relations Consultant Name Role Phone Lukas RODASMargo Unavailable Unavailable [...] Providers Copied on Encounter [facility], [address], [place], [place], [id number], [place] tel:[phone] [facility] floaters (chief complaint) Vitreous degeneratio n, right eye Lukas Aragon. [address] [place], [place], [id number] , [place]. [phone] Referring Provider: Keegan Mcdonald, [address], [place], [address]. tel:[phone] Family History Family Member Type Diagnosis Age At Onset Father Problem (finding) glaucoma Father Problem (finding) cataract Father Problem (finding) degenerative disorder o f macula Payers Payer name Insurance type Covered alliance party ID Kathryn parish(s) [facility] Medicare Advantage Hmo 16 [id number] Social History Type Description Quantity Date Captured [...]
--- OUTSIDE RECORDS SUMMARY | 2025-01-21 00:59 | XMS_ITS | Clinical Summary ---
Author Organization [facility] Address [address] 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
--- OUTSIDE RECORDS SUMMARY | 2025-01-21 00:59 | XMS_ITS | Encounter Summary ---
Author Organization [facility] Address [address] [place] [address] Care Team Providers Care Encapsulator Name Role Phone Unavailable Primary Care Provider Unavailabl e Encounter Details Date Type Department Care Team (Latest Contact Info) Description 08/20/1998 Outpatient Historical [facility] Ray Kaur MD NO ADDRESS ON FILE Spinal stenosis, unspecified region other than cervical (Primary Dx) Social History Tobacco Use Types Packs/Day Years Used Date Smoking Tobacco: Never Assessed Comments Unknown Sex and Gender Information Value Date Recorded Sex Assigned at Not on file Legal Sex Female 5:11 AM ELECTRIC METER TESTER HELPER Gender Identity Not on file Sexual Orientation Not on file documented as of this encounter Plan of Treatment Not on file documented as of this encounter Visit Diagnoses Diagnosis Spinal stenosis, unspecified region other than cervical- Primary documented in this encounter
--- OUTSIDE RECORDS SUMMARY | 2025-01-21 00:59 | XMS_ITS | Encounter Summary ---
Author Organization [facility] Address [address] [place] [address] Phone Care Team Providers Care Lubricating Machine Tender Name Role Phone New Murrell MD Primary Care Prov ider Encounter Details Date Type Department Care Team (Late st Contact Info) Description 10/17/2022 Orders Only [facility]HE[facility]AT[facility] Scanning, Provider Social History Tobacco Use Types Packs/Day Years Used Date Smoking Tobacco: Former Cigarettes 0.2 6 1 972 - 1977 Smokeless Tobacco: Never Alcohol Use Standard Drinks/Week Comments Not Currently 0 (1 standard drink = 0.6 oz pur e alcohol) AUDIT-C Answer Date Recorded Q1: How often do you have a drink containing alcohol? Never 10/20/2022 Q2: How many drinks containi ng alcohol do you have on a typical day when you are drinking? Patient does not drink Q3: How often do you have si x or more drinks on one occasion? Never 10/20/2022 Comments No Sex and Gender Information Value Date Recorded Sex Assigned at Not on file Legal Sex Female 2:[address] RECORDER Gender Identity Female 10/28/2019 3:27 PM CDT Sexual Orientation Straight 10/28/2019 3: 27 PM CDT documented as of this encounter Functional Status * Audit-C Score Answer Date of Assessment Author 0 10/20/2022 2:52 PM CDT Elaine Campuzano CMA * Question Answer Date of Assessment Author Q1: How often do you have a drink containing alcohol? Never 10/20/2022 2:52 PM CDT Linda Campuzano C MA Q2: How many drinks containing alcohol do you have on a typical day when you are drinking? Patient does not drink 10/20/2022 2:52 PM KARINAT Linda Campuzano CMA Q3: How often do you have six or more drinks on one occasion? Never 10/20/2022 2:52 PM Linda Belcher C MA documented as of this encounter Plan of Treatment Not on file documented as of this encounter Procedures Procedure Name Priority Date/Time Associated Diagnosis Comments SCAN - LABS 10/17/2022 documented in this encounter Results * SCAN - LABS (10/17/2022) us Provider Scanning Final Result documented in this encounter Visit Diagnoses Not on filedocumented in this encounter Care Teams Lubricating Machine Tender Relationship Specialty Start Date End Date New Murrell MD PCP - General Family Medicine 02/08/19 documented as of this encounter
--- OUTSIDE RECORDS SUMMARY | 2025-01-21 00:59 | XMS_ITS | Referral Summary ---
Author Organization [facility] Address [address] [place] [address] Care Team Providers Care Casting Machine Service Operator Name Role Phone New Murrell MD Primary [...] (07/12/2021): Added automatically from request for surgery [id number] Pain in joint involving ankle and foot [...] months. Assessment & Plan (05/17/2019 4:50 PM BRIQUETTE MOLDER): 68-year-old white female with longstanding positive AMADOU, [...] additional serology is a complements, lupus anticoagulant, vgsk-vtpdxx-xtqkflbc DNA antibodies in urinalysis today. If all [...] Preservative Free, Intradermal 05/05/2017,04/07/2015 Influenza, Unspecified 04/10/2020,05/04/2018 Social History Tobacco Use Types Packs/Day Years Used Date Smoking Tobacco: Former Cigarettes 0.2 6 1 972 - 1977 Smokeless Tobacco: Never Tobacco Cessation:Counseling Given: [...] on file Legal Sex Female 2:04 PM BRIQUETTE MOLDER Gender Identity Female 10/28/2019 3:27 PM CDT Sexual Orientation Straight 10/28/2019 3: 27 PM CDT Last Filed Vital Signs Vital Sign Reading Time Taken Comments Blood Pressure 119/70 06/13/2024 1:10 PM BRIQUETTE MOLDER Pulse 79 06/13/2024 1:10 PM BRIQUETTE MOLDER Temperature 36.6 C (97.9 F) 06/13/2024 1:10 PM BRIQUETTE MOLDER Respiratory Rate 18 06/13/2024 1:10 PM BRIQUETTE MOLDER Oxygen Saturation 100% 06/13/2024 1:10 PM BRIQUETTE MOLDER Inhaled Oxygen Concentration - - Weight 71.6 kg (157 lb 12.8 oz) 06/13/2024 1:10 PM BRIQUETTE MOLDER Height 157.5 cm (5' 2) 12/20/2023 8:54 AM CDT Body Mass Index 28.86 12/20/2023 8:54 AM CDT Plan of Treatment Not on file Medical Devices Implanted Type Area Chief Wellness Officer Device Identifier Shelf Expiration Date Model / Serial / Lot Marion Spine [id number] Mm X W17 Mm X H6 Mm Cervical Anterior 10 D Cage Spinal Tritanium Sterile Latex Free - [id number] Implanted:Qty : 1 on 08/13/2021 by Kelvin Gant MD at [facility] N/A: Spine Cervical Bouchra Spine [id number] 10/08/2022 [id number] / / [id number] Marion Spine [id number] 20mm Bone Iselin Spine Cervical 1 Level Nonsterile Latex Free - [id number] Implanted:Qty : 1 on 08/13/2021 by Kelvin Gant MD at [facility] N/A: Spine Cervical Marion Spine [id number] / / Bouchra Spine [id number] Screw 16mm 4mm Bone Iselin Spine Cervical Self Start Variable Angle Nonsterile - [id number] Implanted:Qty : 4 on 08/13/2021 by Kelvin Gant MD at [facility] N/A: Spine Cervical Marion Spine [id number] / / [employer] 700-010 Putty 1cc I-Factor Bone - [id number] Implanted:Qty : 1 on 08/13/2021 by Kelvin Gant MD at [facility] N/A: Spine Cervical [employer] [id number] 03/02/2024 700-010 / / [id number] Insurance UHC MEDICARE ADVANTAGE Member Subscriber Plan / Payer (Ef fective 2022-Present) Name:Keren Chung Relation to Subscriber:Self Name:Keren Chung Payer ID:[id number] (NAIC) Type:[facility] MEDICARE Address: [place] [id number] [address] HMO REF UHC MEDICARE ADVANTAGE Advance Directives For more information, please contact: [phone] * Full Code (Latest Code Status on File) Date Activated Date Inactivated Comments 08/13/2021 4:22 PM 08/14/2021 6:55 PM Care Teams Casting Machine Service Operator Relationship Specialty Start Date End Date New Murrell MD PCP - General Family Medicine 02/08/19
--- OUTSIDE RECORDS SUMMARY | 2025-01-21 00:59 | XMS_ITS | Encounter Summary ---
Author Organization [facility] Address [address] [place] [address] Phone Care Team Providers Care Wholesale Diamond Broker Name Role Phone New Murrell MD Primary Care Prov ider Encounter Details Date Type Department Care Team (Late st Contact Info) Description 08/17/2022 Orders Only [facility] RHEUMATOLOGY Scanning, Provider Social History Tobacco Use Types Packs/Day Years Used Date Smoking Tobacco: Former Cigarettes 0.2 6 1 972 - 1977 Smokeless Tobacco: Never Alcohol Use Standard Drinks/Week Comments Not Currently 0 (1 standard drink = 0.6 oz pur e alcohol) AUDIT-C Answer Date Recorded Q1: How often do you have a drink containing alcohol? Never 04/15/2022 Q2: How many drinks containi ng alcohol do you have on a typical day when you are drinking? Patient does not drink Q3: How often do you have si x or more drinks on one occasion? Never 04/15/2022 Comments No Sex and Gender Information Value Date Recorded Sex Assigned at Not on file Legal Sex Female 2:04 PM FIELD LIABILITY GENERALIST Gender Identity Female 10/28/2019 3:27 PM CDT Sexual Orientation Straight 10/28/2019 3: 27 PM CDT documented as of this encounter Plan of Treatment Not on file documented as of this encounter Procedures Procedure Name Priority Date/Time Associated Diagnosis Comments SCAN - LABS 08/17/2022 documented in this encounter Results * SCAN - LABS (08/17/2022) us Provider Scanning Final Result documented in this encounter Visit Diagnoses Not on filedocumented in this encounter Care Teams Wholesale Diamond Broker Relationship Specialty Start Date End Date New Murrell MD PCP - General Family Medicine 02/08/19 documented as of this encounter
[2025-01-21 09:23] VITALS: BP 125/65; PULSE 89; RESP 18; TEMP 36.4; O2SAT 100; BMI 28.4
[2025-01-21] MEDS: LACTATED RINGERS 1,000 ML 150 ML IV CONT (09:33)
--- NOTE | 2025-01-21 09:53 | WPDANESEPPF ---
Anes - Initial Pre Proc Eval Procedure: Operation Date: 01/21/25 10:45 Proposed Procedures p Screening Colonoscopy - Jose Raul Ritter DO Date/Time: 01/21/25 09:53 Surgeon: Jose Raul Ritter DO Pre Op Diagnosis: Neoplasm screening Patient Data Age: 74 Gender: F Height: 1.56 m Weight: 68.8 kg Last Vital Signs Temp 97.5 F L 01/21/25 09:23 Pulse 89 01/21/25 09:23 Resp 18 01/21/25 09:23 BP 125/65 01/21/25 09:23 Pulse Ox 100 01/21/25 09:23 O2 Del Method Room Air 01/21/25 09:23 Allergies Allergy/AdvReac Type Severity Reaction Status Date / Time codeine AdvReac Intermediate nausea Verified 01/21/25 09:22 morphine AdvReac Intermediate NAUSEA AND Verified 01/21/25 09:22 VOMITING Hzaygpk-GFM-OcT Reductase AdvReac Intermediate Other Verified 01/21/25 09:22 Inhibitor Home Medications ?Medication ?Instructions ?Recorded ?Confirmed ?Type multivitamin-ferrous 1 tablet PO DAILY 02/12/21 01/21/25 History fumarate-folic acid 18 mg-400 mcg tablet (Centrum Women) ibuprofen 600 mg tablet 600 mg PO TID PRN pain #30 tabs 11/01/23 01/21/25 Rx diclofenac sodium 75 mg See Rx Instructions .Route 08/23/24 01/21/25 Rx tablet,delayed release .COMPLEX #60 tabs pantoprazole 40 mg tablet,delayed 40 mg PO DAILY #90 tabs 09/23/24 01/21/25 Rx release diclofenac sodium 50 mg 50 mg PO DAILY 01/15/25 01/21/25 History tablet,delayed release Patient hx anesthesia problems: none Family hx anesthesia problems: none Results Review: All pre-operative results and documents have been reviewed as part of the pre-operative evaluation. 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 Family History Family History Father Dementia Colon polyp Mother Carcinoma of colon Dementia Sibling Asthma Social History Social History Smoking status: Never smoker Second hand tobacco smoke exposure: No Alcohol intake: never Substance use: never Substance use type: does not use Do You Feel Safe in your Home?: Yes Lack of Transportation: No Lack of Food: Never True Current Housing: I Have Housing Concerned About Future Housing: No Difficulty Paying Gas/Electric Bills: No Difficulty Paying for Meds: No Currently Unemployed: No Education: Bachelor's Degree Difficulty w/ Childcare or Family Care: No Living arrangements: with family Occupation/Education: retired 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 Gender identity (if verbalized by the patient): Female Sexual Orientation (if Verbalized by the Patient): Straight or Heterosexual Spiritual care concerns: No Agree to blood products: Yes Anes - Eval Final PreProcedure Day of Procedure 01/21/25 09:53 Patient weight: normal Lungs: normal air movement Airway: Mallampati scale class II Neurological: alert and oriented Last oral intake: >/= 8 hours ASA classification: II Emergent: no Anesthetic plan: proceed Anesthesia type and monitoring: general GIVS and standard monitoring Results Review: All pre-operative results and documents have been reviewed as part of the pre-operative evaluation. SLE w mainly arthralgia, pt can walk 1-2 fos, no cp or sob. Informed Consent: The patient's anesthetic plan and its attendant risks and benefits were discussed with the patient/family/POA. Questions were solicited and answers provided to the satisfaction of the patient/family/POA.
--- NOTE | 2025-01-21 10:02 | PM.IMHP ---
H&P: HPI History of Present Illness Date/Time: 01/21/25 10:02 Chief Complaint: family history colon cancer Narrative: this is a 64-year-old woman presents for colonoscopy. Her last colonoscopy was 10 years ago and was normal. Mother was diagnosed with colon cancer.. She denies any hematochezia or melena. Review of Systems Review of Systems: All systems reviewed & are unremarkable except as noted in HPI and below Constitutional: Constitutional: Denies chills, Denies fever(s), Denies headache(s) and Denies weight loss Eyes: Eyes: Denies change in vision ENT: Denies dizziness, Denies headache(s), Denies neck mass and Denies throat swelling Cardiovascular: Cardiovascular: Denies chest pain, Denies lightheadedness and Denies dyspnea Respiratory: Respiratory: Denies cough, Denies dyspnea and Denies wheezing Gastrointestinal: Gastrointestinal: Denies abdominal pain, Denies change in bowel habits, Denies nausea and Denies vomiting Genitourinary: Genitourinary: Denies hematuria and Denies dysuria Musculoskeletal: Musculoskeletal: Reports as per HPI Integumentary/Breasts: Skin/Breast: Reports as per HPI Neurologic: Denies dizziness and Denies headache(s) Allergic/Immunologic: Allergic/Immunologic: Denies throat swelling and Denies wheezing PMF Past Medical History Medical History BMI 29.0-29.9,adult Normal colonoscopy 01/12 Repeat 01/22 High cholesterol GERD (gastroesophageal reflux disease) Stomach ulcer Lupus Surgical History Surgical History History of tonsillectomy History of hysterectomy History of fusion of cervical spine (08/2021) H/O excision of mass 02/22/21 Excision of subcutaneous mass right posterior neck 4 x 3 by 1.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 Family History Family History Father Dementia Colon polyp Mother Carcinoma of colon Dementia Sibling Asthma Social History Social History Smoking status: Never smoker Second hand tobacco smoke exposure: No Alcohol intake: never Substance use: never Substance use type: does not use Do You Feel Safe in your Home?: Yes Lack of Transportation: No Lack of Food: Never True Current Housing: I Have Housing Concerned About Future Housing: No Difficulty Paying Gas/Electric Bills: No Difficulty Paying for Meds: No Currently Unemployed: No Education: Bachelor's Degree Difficulty w/ Childcare or Family Care: No Living arrangements: with family Occupation/Education: retired 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 Gender identity (if verbalized by the patient): Female Sexual Orientation (if Verbalized by the Patient): Straight or Heterosexual Spiritual care concerns: No Agree to blood products: Yes Meds Home Medications and Allergies Home Medications ?Medication ?Instructions ?Recorded ?Confirmed ?Type multivitamin-ferrous 1 tablet PO DAILY 02/12/21 01/21/25 History fumarate-folic acid 18 mg-400 mcg tablet (Centrum Women) ibuprofen 600 mg tablet 600 mg PO TID PRN pain #30 tabs 11/01/23 01/21/25 Rx diclofenac sodium 75 mg See Rx Instructions .Route 08/23/24 01/21/25 Rx tablet,delayed release .COMPLEX #60 tabs pantoprazole 40 mg tablet,delayed 40 mg PO DAILY #90 tabs 09/23/24 01/21/25 Rx release diclofenac sodium 50 mg 50 mg PO DAILY 01/15/25 01/21/25 History tablet,delayed release Allergies Allergy/AdvReac Type Severity Reaction Status Date / Time codeine AdvReac Intermediate nausea Verified 01/21/25 09:22 morphine AdvReac Intermediate NAUSEA AND Verified 01/21/25 09:22 VOMITING Vabzktf-JGZ-LwC Reductase AdvReac Intermediate Other Verified 01/21/25 09:22 Inhibitor Vital Signs Vital Signs - 24 hr 01/21/25 09:23 Temperature 97.5 F L Pulse Rate 89 Respiratory Rate 18 Blood Pressure 125/65 Pulse Oximetry 100 Oxygen Delivery Room Air Exam Const: General: no acute distress and alert Orientation/consciousness: patient oriented x3 HENMT: Head: normocephalic and atraumatic Ears: hearing grossly normal bilaterally Face/Nose/Sinus: Normal nares present Mouth: Yes Normal oral and palatal mucosa present Eyes: Periorbital: periorbital findings normal Sclera: sclerae normal EOM: EOMs intact bilaterally Neck: Neck: normal visual inspection, no lymphadenopathy and trachea midline Chest: Chest palpation & inspection: normal inspection of the chest Resp: Effort & Inspection: normal respiratory effort Auscultation: clear to auscultation bilaterally Cardio: Jugular venous distension: no JVD Rate: regular rate Rhythm: regular rhythm Heart sounds: S1 normal heart sound present and S2 normal heart sound present Peripheral pulses: Peripheral pulses 2+ throughout GI: Inspection: normal to inspection GI Palp: Yes Soft to palpation, No Tenderness to palpation present (GI), No Guarding due to palpation present (GI) and No Rebound tenderness present Percussion: Yes normal to percussion Auscultation: normal bowel sounds : General: Yes no CVA tenderness Back/Spine/Pelvis: Back: no CVA tenderness Neuro: General: patient oriented x3, no focal motor deficits and CN's II-XI intact bilaterally Cognition (Neuro): normal cognition Speech: normal speech Motor exam (neuro): 5/5 motor strength present throughout Extrem: General: capillary refill normal and no clubbing, cyanosis or edema Assessment and Plan Assessment and plan (1) Family hx of colon cancer: Code(s): Z80.0 - Family history of malignant neoplasm of digestive organs Status: Acute Assessment and Plan: I have recommended colonoscopy. I have discussed the procedure, risks, benefits, and alternatives. Questions were answered. Patient is agreeable to proceed.
[2025-01-21 10:30] VITALS: BP 121/66; PULSE 71; RESP 17; O2SAT 99
[2025-01-21 10:40] VITALS: BP 119/67; PULSE 74; RESP 16; O2SAT 100
[2025-01-21 10:50] VITALS: BP 117/87; PULSE 77; RESP 16; O2SAT 100
== END 2025-01-21 10:57 | disposition home or self-care (01) ==
PROVIDERS: PCP Family Medicine Adolescent Medicine; Visit Provider Surgery
PROC: 0DJD8ZZ Inspection of Lower Intestinal Tract, Via Natural or Artificial Opening Endoscopic (ICD-10-PCS; CPT 45378; principal; 2025-01-21 10:45)
DX: Z12.11 Encounter for screening for malignant neoplasm of colon (principal); E78.00 Pure hypercholesterolemia, unspecified; K21.9 Gastro-esophageal reflux disease without esophagitis; M32.9 Systemic lupus erythematosus, unspecified; Z79.1 Long term (current) use of non-steroidal anti-inflammatories (NSAID); Z98.890 Other specified postprocedural states; Z98.1 Arthrodesis status; Z87.11 Personal history of peptic ulcer disease; Z83.719 Family history of colon polyps, unspecified; Z80.0 Family history of malignant neoplasm of digestive organs
CPT/HCPCS: G0105; J2704; J7120

== ENCOUNTER 2025-02-28 13:24 | Outpatient (CLI) | payer MEDICARE, SELFPAY ==
--- OUTSIDE RECORDS SUMMARY | 2019-06-28 07:00 | XMS_ITS | Continuity of Care Document ---
Author Organization [facility] Address [address] [place] [address] Phone Care Team Providers Care Barrel Finisher Name Role Phone Lukas RODASMargo Unavailable Unavailable Allergies, Adverse Reactions, Alerts Substance Reaction Status Criticality No Known Allergies Active No Inform ation Medications Medication Instructions Dosage Effective Dates (start - stop) Status Comments pantoprazole 20 mg tablet,delayed release - Active prednisone 10 mg tablet - Ac tive hydroxychloroquine 200 mg tablet - Active pantoprazole 40 mg tablet,delayed release - Active ranitidine 150 mg tablet - A ctive Procedures Procedure Date EYE EXAM WITH PHOTOS EYE EXAM, NEW PATIENT No Charge Visit Advance Directives Directive Yes / No Effective Date File Name No Information Encounters Encounter Description Practice Location Reason(s) For Visit Diagnoses Date Provider Providers Copied on Encounter [facility], [address], [place], [place], [id number], [place] tel:[phone] [facility] floaters (chief complaint) Vitreous degeneratio n, right eye Lukas Aragon. [address], [place], [id number] , [place]. [phone] Referring Provider: Keegan Mcdonald, [address] [facility] [address], [place], [address]. tel:[phone] Family History Family Member Type Diagnosis Age At Onset Father Problem (finding) glaucoma Father Problem (finding) cataract Father Problem (finding) degenerative disorder o f macula Payers Payer name Insurance type Covered libertarian ID Kathryn parish(s) [facility] Medicare Advantage Hmo 16 [id number] Social History Type Description Quantity Date Captured Comments Alcohol Use Details Unknown Caffeine Use Details Unknown Tobacco Use Status Current non-smoker 19 Smoking Status Never smoker Non-Smoking Tobacco Use Details : No Details Available : No Details Available Sex Female Chief Complaint And Reason For Visit From encounter dated '06/28/2019 12:00'. floaters (chief complaint). Description: The 68 year old female presents for evaluation of floatersin the right eye. It started about 1 week(s) ago. It occurs daily. It affects OD. The symptom is intermittent. The condition is mild. PT states that she has noticed new floaters in (OD) daily along with blurred VA. PT states (OS) is doing well at this time. Reason For Referral Reason For Referral No Information History Of Present Illness Encounter Date Complaint History Of Prese nt Illness floaters The 68 year old female presents for evaluation of floaters in the right eye. It started about 1 week(s) ago. It occurs daily. It affects OD. The symptom is intermittent. The condition is mild. PT states that she has noticed new floaters in (OD) daily along with blurred VA. PT states (OS) is doing well at this time. Functional Status Date Functional Assessmen t No Information Instructions Date Instruction Additional Infor mation Impression/Plan Related to Vitre ous degeneration, right eye Assessments Type Assessment Date assessment Vitreous degeneration, right eye impression Vitreous degeneration, right eye : H43.811 Patient Care Teams Name Effective Dates (start - stop) Status Members No Information
--- NOTE | ~2025-02-28 | MM_ITS ---
EXAMINATION: MM screening candelario BI w eyad HISTORY: Screening TECHNIQUE: Craniocaudal and mediolateral oblique 3-D tomosynthesis images were obtained and synthetic 2-D images were generated. CAD analysis was submitted and interpreted. COMPARISON: Comparison to multiple prior studies sequentially, with oldest reviewed study dated , 02/06/2018 BREAST PARENCHYMAL COMPOSITION: There are scattered areas of fibroglandular density. FINDINGS: There is no evidence of suspicious mass, calcification, or architectural distortion to suggest malignancy in either breast. IMPRESSION: 1. No mammographic evidence of malignancy. 2. Recommend routine screening mammography in one year. BI-RADS Category 1: Negative Reviewed, dictated and finalized at location B.
--- OUTSIDE RECORDS SUMMARY | 2025-02-28 13:28 | XMS_ITS | Encounter Summary ---
Author Organization [facility] Address [address] [place] [address] Phone Care Team Providers Care Hoe Runner Name Role Phone New Murrell MD Primary [...] on file Legal Sex Female 2:04 PM SOCIAL WORK INSTRUCTOR Gender Identity Female 10/28/2019 3:27 PM CDT [...] on filedocumented in this encounter Care Teams Hoe Runner Relationship Specialty Start Date End Date New Murrell MD PCP - General Family Medicine 02/08/19 documented as of this encounter
--- OUTSIDE RECORDS SUMMARY | 2025-02-28 13:28 | XMS_ITS | Encounter Summary ---
Author Organization [facility] Address [address] [place] [address] Care Team Providers Care Cable Technician Name Role Phone Unavailable Primary Care Provider [...] on file Legal Sex Female 5:11 AM LOCKS INSPECTOR Gender Identity Not on file Sexual Orientation Not on file documented as of this encounter Plan of Treatment Not on file documented as of this encounter Visit Diagnoses Diagnosis Spinal stenosis, unspecified region other than cervical- Primary documented in this encounter
--- OUTSIDE RECORDS SUMMARY | 2025-02-28 13:28 | XMS_ITS | Clinical Summary ---
Author Organization [facility] Address [address] [place] [address] Care Team Providers Care Finishing Department Supervisor Name Role Phone New Murrell MD Primary Care Provider + Source Comments [facility],non-owned Affiliates and Associated Physician Practices is amultiple site organization consisting of ambulatory clinics and hospital sitesin [place], [place], [place] and [place]. This disclosure is being madepursuant to the Care Everywhere program and may not contain all information available regarding this patient. Last updated 18.[facility] [employer] Allergies Active Allergy Reactions Criticality Noted Date [...] on file Legal Sex Female 6:37 AM SHOP HAND Gender Identity Not on file Sexual Orientation [...] CDT Respiratory Rate 18 09/02/2019 10:35 AM SHOP HAND Oxygen Saturation 100% 03/15/2021 9:51 AM CDT [...] Additional history exists COVID-19 VACCINE ( - 2023- season) 2024 DEPRESSION SCREENING 07/03/2024 INFLUENZA VACCINE (#1) 2025 , 04/10/2020, 05/04/2018, [...] HEPATITIS C ANTIBODY Routine 08/23/2011 3:40 PM SHOP HAND from Last 3 Months or Most Recently [...] Resulting Agency Comment Lab Testing performed at: [facility] [address] [id number] Jackie Quiroz MD LAB - CHEMISTRY [place]A BLES Final Result [facility] INSURANCE BILL [address] [place] [address] * HEPATITIS C ANTIBODY (08/23/2011 3:40 PM SHOP HAND) Hepatitis C Antibody NEGATIVE NEGATIVE [facility] Comment: Anti-HCV screen indicates no serologic evidence of past or current infection with Hepatitis C Virus. 08/23/2011 3:40 PM SHOP HAND 08/23/2011 4:13 PM SHOP HAND us Han Forrest MD LAB - CHEMISTRY ORDERABLES Final Result [address] [phone] from Last 3 Months or Most Recently Relevant to Health Maintenance Insurance [facility] MANAGED MEDICARE ADV [facility] [place] [address] Care Teams Finishing Department Supervisor Relationship Specialty Start Date End Date New Murrell MD [address] [address] PCP - General 11/01/17
--- OUTSIDE RECORDS SUMMARY | 2025-02-28 13:28 | XMS_ITS | Clinical Summary ---
Author Organization [facility] Address [address] [place] [address] Care Team Providers Care Medical Liaison Name Role Phone New Murrell MD Primary [...] (07/12/2021): Added automatically from request for surgery [id number] Pain in joint involving ankle and foot [...] months. Assessment & Plan (05/17/2019 4:50 PM PASTOR): 68-year-old white female with longstanding positive AMADOU, [...] additional serology is a complements, lupus anticoagulant, ijwb-goeyjj-vgaxrhiq DNA antibodies in urinalysis today. If all [...] SPINAL FUSION HYSTERECTOMY 07/03/1997 - 07/02/1998 COLONOSCOPY 2013 Medical History Medical History Date Comments High cholesterol Stomach ulcer Chest pain Gastric reflux Disc disorder of lumbar region Lumbar stenosis Osteoarthritis Lupus PONV (postoperative nausea and vomiting) nausea and vomitting after spinal surgery in 2007, stayed overnight for PONV, unsure if related to anesthesia or pain meds, no problems since Lyme disease 10/2022 HL (hearing loss) 2021 GERD (gastroesophageal reflux disease) 2015 Tinnitus 2020 Connective tissue disease, undifferentiated 05/17/2019 [...] Smoking Tobacco: Former Cigarettes 0.2 6 1 - 1977 Smokeless Tobacco: Never Tobacco Cessation:Counseling [...] on file Legal Sex Female 2:04 PM PASTOR Gender Identity Female 10/28/2019 3:27 PM CDT Sexual Orientation Straight 10/28/2019 3: 27 PM CDT Obstetrics History Last Filed Vital Signs Vital Sign Reading Time Taken Comments Blood Pressure 119/70 06/13/2024 1:10 PM PASTOR Pulse 79 06/13/2024 1:10 PM PASTOR Temperature 36.6 C (97.9 F) 06/13/2024 1:10 PM PASTOR Respiratory Rate 18 06/13/2024 1:10 PM PASTOR Oxygen Saturation 100% 06/13/2024 1:10 PM PASTOR Inhaled Oxygen Concentration - - Weight 71.6 kg (157 lb 12.8 oz) 06/13/2024 1:10 PM PASTOR Height 157.5 cm (5' 2) 12/20/2023 8:54 [...] 65+ (1 of 1 - PCV) 2002 Well Visit 65+ 2017 Fall Risk Assessment 08/13/2022 08/13/2021 Covid-19 Vaccine ( - 2023-2 5 season) 2024 06/16/2021, 09/04/2020, 08/07/2020 Influenza Vaccine (#1) 2025 , 04/10/2020, 05/04/2018, Additional history exists Zoster Vaccine (2 of 2) 03/24/2025 01/27/2025 Medical Devices Implanted Type Area Machine Erector Device Identifier Shelf Expiration Date Model / Serial / Lot Bouchra Spine [id number] Mm X W17 Mm X H6 Mm Cervical Anterior 10 D Cage Spinal Tritanium Sterile Latex Free - [id number] Implanted:Qty : 1 on 08/13/2021 by Kelvin Gant MD at [facility] N/A: Spine Cervical Bouchra Spine [id number] 10/08/2022 [id number] / / [id number] Brevard Spine [id number] 20mm Bone Wagoner Spine Cervical 1 Level Nonsterile Latex Free - [id number] Implanted:Qty : 1 on 08/13/2021 by Kelvin Gant MD at [facility] N/A: Spine Cervical Bouchra Spine [id number] / / Brevard Spine [id number] Screw 16mm 4mm Bone Wagoner Spine Cervical Self Start Variable Angle Nonsterile - [id number] Implanted:Qty : 4 on 08/13/2021 by Kelvin Gant MD at [facility] N/A: Spine Cervical Bouchra Spine [id number] / / [id number] 700-010 Putty 1cc I-Factor Bone - [id number] Implanted:Qty : 1 on 08/13/2021 by Kelvin Gant MD at [facility] N/A: Spine Cervical [employer] [id number] 03/02/2024 700-010 / / [id number] Insurance UHC MEDICARE ADVANTAGE [place] [id number] HMO REF [place] [id number] UHC MEDICARE ADVANTAGE Advance Directives For more information, please contact: [phone] * Full Code (Latest Code Status on File) Date Activated Date Inactivated Comments 08/13/2021 4:22 PM 08/14/2021 6:55 PM Care Teams Medical Liaison Relationship Specialty Start Date End Date New Murrell MD PCP - General Family Medicine 02/08/19
--- OUTSIDE RECORDS SUMMARY | 2025-02-28 13:28 | XMS_ITS | Encounter Summary ---
Author Organization [facility] Address [address] [place] [address] Phone Care Team Providers Care Health Care Technician Name Role Phone New Murrell MD Primary [...] on file Legal Sex Female 2:04 PM PAN SHOVER Gender Identity Female 10/28/2019 3:27 PM CDT Sexual Orientation Straight 10/28/2019 3: 27 PM CDT documented as of this encounter Functional Status * AUDIT-C Score Answer Date of Assessment Author 0 10/20/2022 2:52 PM CDT Elaine Campuzano CMA * Question Answer Date of Assessment Author Q1: How often do you have a drink containing alcohol? Never 10/20/2022 2:52 PM KARINAT Linda Campuzano C MA Q2: How many drinks containing alcohol do you have on a typical day when you are drinking? Patient does not drink 10/20/2022 2:52 PM Linda Belcher CMA Q3: How often do you have [...] on filedocumented in this encounter Care Teams Health Care Technician Relationship Specialty Start Date End Date New Murrell MD PCP - General Family Medicine 02/08/19 documented as of this encounter
--- OUTSIDE RECORDS SUMMARY | 2025-02-28 13:28 | XMS_ITS | Clinical Summary ---
Author Organization [facility] Address [address] 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
== END 2025-02-28 13:25 | disposition home or self-care (01) ==
LOC: CHSIMG 13:25
PROVIDERS: PCP Family Medicine Adolescent Medicine; Visit Provider Family Medicine Adolescent Medicine
DX: Z12.31 Encounter for screening mammogram for malignant neoplasm of breast (principal)
CPT/HCPCS: 77063; 77067